=== PATIENT | female | born 1995 | race Caucasian/White ===

== ENCOUNTER 2020-07-18 08:47 | Emergency (ER) | payer OTHER, SELFPAY ==
[2020-07-18 09:03] VITALS: BP 117/62; PULSE 82; RESP 18; TEMP 37.3; O2SAT 98
--- NOTE | 2020-07-18 09:13 | ED.SKABFB ---
HPI - Skin/Abscess/Foreign Bdy General Chief complaint: Skin/Abscess/Foreign Body Stated complaint: Rash Time Seen by Provider: 07/18/20 09:07 Source: patient and RN notes reviewed Mode of arrival: ambulatory Limitations: no limitations History of Present Illness HPI narrative: Patient presents today complaining of a severely pruritic rash x3 days. She was out in the [place] 3 days prior to onset, but denies any exposure to any other known allergens. Most severe rashes to the right abdomen, but also has rash to left hip and right buttock. She has been using hydrocortisone and Benadryl without relief. complaint: rash Related Data Home Medications Medication Instructions Recorded Confirmed No Home Medications 07/18/20 07/18/20 Allergies Allergy/AdvReac Type Severity Reaction Status Date / Time Sulfa (Sulfonamide Allergy Other Verified 07/18/20 09:07 Antibiotics) Review of Systems Review of Systems: Narrative: CONSTITUTIONAL: Denies body aches, fever, chills, or sweats. EYES: Denies visual changes, redness, or discharge. ENT: Denies rhinorrhea, congestion, sore throat, or otalgia. CARDIOVASCULAR: Denies chest pain, palpitations, or edema. RESPIRATORY: Denies cough or dyspnea. GASTROINTESTINAL: Denies abdominal pain, nausea, vomiting, or diarrhea. GENITOURINARY: Denies dysuria or hematuria. SKIN: + Pruritic rash MUSCULOSKELETAL: Denies back pain, joint pain, or myalgia. NEUROLOGIC: Denies headache, numbness, tingling, or weakness. PSYCH: Denies depression or anxiety. PMFSH Comments At time of signature, I have reviewed and agree with nursing past medical, surgical, social and family history unless otherwise noted. Please see nursing chart for further information. There is no relevant family history pertinent to the presenting complaint Exam Narrative: Exam Narrative: GENERAL: Well-appearing, well-nourished, and in no acute distress. HEAD: Normocephalic, atraumatic. EYES: EOMI. No redness or drainage. Conjunctivae normal. ENT: Mucous membranes pink and moist. NECK: Normal AROM. CHEST: No respiratory distress. EXTREMITIES: Normal range of motion. No edema. SKIN: Warm, dry. Capillary refill normal. Normal skin turgor. + Erythematous maculopapular rash and a large patch to the right anterior abdomen. Smaller patch to the left hip and right buttock. No fluctuance, induration, drainage. NEURO: No focal deficits. Alert and oriented x3. Gait steady. PSYCH: Normal affect. No signs of depression or anxiety. Course Vital Signs Vital signs: Vital Signs Temperature 99.2 F 07/18/20 09:03 Pulse Rate 82 07/18/20 09:03 Respiratory Rate 18 07/18/20 09:03 Blood Pressure 117/62 07/18/20 09:03 Pulse Oximetry 98 07/18/20 09:03 Temperature 99.2 F 07/18/20 09:03 Pulse Rate 82 07/18/20 09:03 Respiratory Rate 18 07/18/20 09:03 Blood Pressure 117/62 07/18/20 09:03 Pulse Oximetry 98 07/18/20 09:03 Reviewed MDM - Skin/Abscess/Foreign Bdy Differential Diagnosis Differential diagnosis: Likely abscess of skin or subcutaneous tissue, urticaria, herpes zoster, cellulitis, eczema, insect bites, impetigo and contact dermatitis Critical Care Time Critical Care Time Critical Care Time: No Discharge Plan Discharge Clinical Impression: Contact dermatitis Qualifiers: Contact dermatitis type: unspecified Contact dermatitis trigger: unspecified trigger Qualified Code(s): L25.9 - Unspecified contact dermatitis, unspecified cause Patient Disposition: Home, Self-Care Condition: Stable Instructions: Contact Dermatitis (DC) Additional Instructions: Please take the prednisone as prescribed until gone. You may continue Benadryl or hydrocortisone for itching. Follow-up with your doctor next week if symptoms are not improving. Patient Language: Swedish Prescriptions: New prednisone 10 mg tablet See Rx Instructions .ROUTE .COMPLEX Qty: 42 RF: 0 No Action No Home
== END 2020-07-18 09:19 | disposition home or self-care (01) ==
PROVIDERS: Emergency Provider Nurse Practitioner
DX: L25.9 Unspecified contact dermatitis, unspecified cause (principal)
CPT/HCPCS: 99213; G0463